=== PATIENT | male | born 1990 | race Two or more races ===

== ENCOUNTER → 2024-08-23 | Outpatient (BNVA) | payer MEDICAID, SELFPAY | END | disposition home or self-care (01) | PROVIDERS: PCP Family Medicine; Referring Provider Family Medicine; Visit Provider Urology | DX: N40.0 Benign prostatic hyperplasia without lower urinary tract symptoms (principal); Z98.52 Vasectomy status | CPT/HCPCS: 81003; 99212; G0463 ==